=== PATIENT | male | born 1995 | race Caucasian/White ===

== ENCOUNTER 2021-01-04 11:12 | Emergency (ER) | payer SELFPAY ==
[2021-01-04] MEDS ORDERED: Lidocaine 1% w/Epinephrine 1:100K 20 ML VIAL ONE (11:27)
[2021-01-04] MEDS ORDERED: Bacitracin 1 PK ONE (11:58)
== END 2021-01-04 12:09 | disposition home or self-care (01) ==
LOC: MADERS 11:12
DX: S51.812A Laceration without foreign body of left forearm, initial encounter (principal); F17.210 Nicotine dependence, cigarettes, uncomplicated; W29.8XXA Contact with other powered hand tools and household machinery, initial encounter
CPT/HCPCS: 12002